=== PATIENT | male | born 1980 | race Caucasian/White ===

== ENCOUNTER 2024-06-26 14:59 | Outpatient (AMB) | payer BC, SELFPAY ==
--- NOTE | 2024-06-26 15:14 | A.SPINEOV_ITS ---
Intake Visit Reasons: herniated disk Intake Note: Mr. Bennett is here today c/o low back pain Right sided. Product Advisor Required: No Allergies No Known Allergies Allergy (Verified 06/26/24 15:16) Assessment & Plan Assessment & Plan (1) Lumbar radiculopathy: Code(s): M54.16 - Radiculopathy, lumbar region Category: Medical Plan Abel is a pleasant 44-year-old male who comes in today with a chief complaint of right-sided sciatic pain. He is self-referred to our office. He reports that over the course of the last 1 year his symptoms have been waxing/waning in nature. He is unable to identify any inciting incident. He reports that he awoke 1 day with significant right-sided leg pain starting near his low back/right gluteal area and shooting down his right posterior thigh. He reports that after an injection done by pain management he had significant relief of symptoms, but the pain seems to always recur. He has had a few more injections since the first successful injection without any symptom relief. He is now considering an ablation therapy for pain relief. He does not take any pain medications at this time. He has tried physical therapy and found it was not helpful. He denies any numbness/tingling/burning sensation alongside his pain. He does state that he has some degree of weakness when ambulating down a set of stairs. PMH: None. Social hx: Patient does not smoke, reports no substance use. Medications: Wellbutrin, escitalopram. Allergies: NKDA. Physical exam: The patient has 5/5 strength in his upper and lower extremities. No significant sensational deficits. Reflexes are 2+ intact. He ambulates well and rises from seated position without difficulty. (-) Arriaza's, (-) straight leg raise, (-) clonus. Imaging review: MRI of the lumbar spine completed at [facility] shows mild central canal stenosis at L4-5. No other significant pathology seen. Impression: Abel is a pleasant 44-year-old male who comes in with a chief complaint of right-sided leg pain which has been ongoing for the last year without any inciting incident. His story sounds most consistent with a disc herniation that resorbed at some point over the course of the last year. There is no acute pathology seen on his MRI imaging today. He was strongly encouraged to continue follow-up with pain management for symptom relief. The total time spent with this visit with this patient was 45 minutes reviewing history, physical exam, MRI imaging review, and implementation of treatment plan or further diagnostic testing Peewee Boyd MD,PhD [facility] Coding Level of Care Code New Pt Level 4 (16800) Diagnoses Lumbar radiculopathy M54.16
== END 2024-06-26 15:39 | disposition home or self-care (01) ==
PROVIDERS: PCP Family Medicine; Visit Provider Physician Assistant
DX: M54.16 Radiculopathy, lumbar region (principal)
CPT/HCPCS: 99204

== ENCOUNTER → 2024-06-26 14:59 | Outpatient (BNVA) | payer BC, SELFPAY | PROVIDERS: PCP Family Medicine; Visit Provider Physician Assistant ==